=== PATIENT | female | born 1965 | race Hispanic/Latino ===

== ENCOUNTER 2020-09-17 15:23 | Emergency (ER) | payer OTHER ==
--- NOTE | 2020-09-17 18:26 | Emergency Department Report ---
ED General Adult HPI - General Chief complaint: Back Pain/Injury Stated complaint: BACK PAIN/CANT EAT PUI?: No Time Seen by Provider: 09/17/20 18:18 Source: patient Mode of arrival: Ambulatory Limitations: Physical Limitation - History of Present Illness Initial comments: The patient was evaluated in the emergency department for symptoms described in the history of present illness. He/she was evaluated in the context of the g lobal COVID-19 pandemic, which necessitated consideration that the patient might be at risk for infection with the virus that causes COVID-19. Institutional protocols and algorithms that pertain to the evaluation of patients at risk for COVID-19 are in a state of rapid change based on information released by regulatory bodies including the CDC and federal and state organizations. These policies and algorithms were followed during the patient's care in the emergency department. Please note that these policies, procedures and recommendations changed on a rapid basis. This is a 54-year-old female. She is not known to myself previously. She currently does not have a primary care doctor secondary to lack of having insurance, secondary to the Covid pandemic, but reports that she is starting to follow-up with a new doctor next month whom she has not seen. She reports a history of scoliosis, but otherwise denies chronic medical issues. She denies a history of IV drug use, and has a remote history of alcohol consumption for recreational reasons. Patient presents to the ER today with complaints of generalized weakness, nontraumatic paralumbar back pain, abdominal distention, constipation, lower extremity edema and swelling, decreased appetite, and "spitting up", every time she tries to eat, for the past 3 to 4 days. The back pain has been present for around 6 months. It is aching and throbbing, increases with palpation, decreases with rest in certain positions. She has not really taken much [id number], "may be a little bit of Tylenol here and there." She endorses lower extremity swelling which is new, for the past 4 to 5 days. She previously was 125 pounds, and reports that she is currently 85 pounds, and reports this is an unintentional weight loss. Abdominal distention is noted on review of systems. She is not vomited, but reports decreased appetite, and "spitting up", every time she tries to drink or eat. No Covid symptomatology. -: Gradual, days(s), month(s) Location: back, abdomen Quality: aching Consistency: intermittent Improves with: rest Worsens with: eating, movement - Related Data Previous Rx's Medication Instructions Recorded Last Taken Type Docusate Sodium [Colace] 100 mg PO BID PRN #60 capsule 09/17/20 Unknown Rx Ferrous Sulfate [Iron 325 MG] 325 mg PO TID #90 tablet 09/17/20 Unknown Rx oxyCODONE /ACETAMINOPHEN [Percocet 1 tab PO Q6HR PRN #15 tablet 09/17/20 Unknown Rx 5/325] Allergies Allergy/AdvReac Type Severity Reaction Status Date / Time No Known Allergies Allergy Unverified 09/17/20 17:16 ED Review of Systems ROS: Stated complaint: BACK PAIN/CANT EAT Other details as noted in HPI Constitutional: malaise, weakness, other (Denies loss of taste and smell). denies: fever Eyes: other (Denies yellow eyes) ENT: denies: epistaxis Respiratory: denies: cough Cardiovascular: denies: chest pain Gastrointestinal: nausea, constipation, other (Abdominal distention. Constipation) Genitourinary: denies: dysuria Musculoskeletal: back pain Neurological: weakness Psychiatric: anxiety Hematological/Lymphatic: denies: easy bleeding ED Past Medical Hx - Past Medical History Previous Medical History?: No - Surgical History Past Surgical History?: Yes Additional Surgical History: - Medications Home Medications: Home Medications Medication Instructions Recorded Confirmed Last Taken Type Docusate Sodium [Colace] 100 mg PO BID PRN #60 capsule 09/17/20 Unknown Rx Ferrous Sulfate [Iron 325 MG] 325 mg PO TID #90 tablet 09/17/20 Unknown Rx oxyCODONE /ACETAMINOPHEN [Percocet 1 tab PO Q6HR PRN #15 tablet 09/17/20 Unknown Rx 5/325] ED Physical Exam - General Limitations: No Limitations General appearance: alert, anxious - Head Head exam: Present: atraumatic, normocephalic - Eye Eye exam: Present: normal appearance, EOMI. Absent: scleral icterus, nystagmus - ENT ENT exam: Present: normal exam, normal orophraynx, mucous membranes moist, normal external ear exam - Neck Neck exam: Present: normal inspection, full ROM. Absent: tenderness, meningismus - Respiratory Respiratory exam: Present: normal lung sounds bilaterally. Absent: respiratory distress, wheezes, rales, rhonchi, stridor, decreased breath sounds - Cardiovascular Cardiovascular Exam: Present: normal rhythm, tachycardia, normal heart sounds. Absent: bradycardia, irregular rhythm, systolic murmur, diastolic murmur, rubs, gallop - GI/Abdominal GI/Abdominal exam: Present: soft, distended, organomegaly (Hepatomegaly), other (Fluid wave appreciated). Absent: tenderness, guarding, rebound, rigid - Extremities Exam Extremities exam: Present: normal inspection, full ROM, pedal edema (3+ edema in the lower extremities), other (2+ pulses noted in the bilateral upper and lower extremities. There is no palpable cord. negative Homans sign. Muscular compartments are soft. The pelvis is stable.). Absent: calf tenderness - Back Exam Back exam: Present: normal inspection, paraspinal tenderness. Absent: CVA tenderness (R), CVA tenderness (L) - Neurological Exam Neurological exam: Present: alert, other (No facial droop. Tongue midline. Extraocular movements intact bilaterally. Facial sensation intact to light touch in V1, V2, V3 distribution bilaterally. 5 and a 5 strength in 4 extremities. Sensation intact to light touch in 4 extremities.). Absent: motor sensory deficit - Psychiatric Psychiatric exam: Present: anxious - Skin Skin exam: Present: warm, dry, intact, normal color. Absent: rash ED Course Vital Signs 09/17/20 09/17/20 09/17/20 17:18 20:11 20:20 Temperature 98.2 F Pulse Rate 107 H 101 H 108 H Respiratory 18 22 22 Rate Blood Pressure 92/52 113/65 Blood Pressure 108/67 [Right] O2 Sat by Pulse 100 Oximetry 09/17/20 09/17/20 09/17/20 22:28 22:48 23:03 Temperature 98.3 F 98.1 F 98.2 F Pulse Rate 103 H 104 H 98 H Respiratory 18 22 13 Rate Blood Pressure 104/68 106/71 109/71 Blood Pressure [Right] O2 Sat by Pulse 100 100 100 Oximetry - Reevaluation(s) Reevaluation #1: 09/17/20 19:06 Differential diagnosis, including but not limited to: Cirrhosis, hepatic failure, renal failure, mechanical back pain, obstruction, Assessment and plan: 54-year-old female, with back pain for approximately 6 months, with acute rather rapid lower extremity swelling, unintentional weight gain, hepatomegaly, fluid wave, suspicious for hepatic disease. The patient is not encephalopathic and there is no asterixis. Place patient on cardiac nurse, start pain medication, nausea medication, obtain appropriate hepatic related studies, obtain CT scan of the abdomen pelvis, and reassess after initial data points. Patient does walk with a steady gait, she has no bladder or bowel retention or incontinence, no saddle anesthesia, denies IV drug use, there is no posterior back redness, pus or streaking noted, her examination at this time is not suggestive of AAA, or epidural compression syndrome, or epidural infection. This is suspicious for mechanical back pain. Reevaluation #2: 09/17/20 20:15 Patient found to have severe anemia. Patient gives consent for packed red blood cell transfusion. Rectal examination shows guaiac negative stool, no blood, chaperoned by nurse Gaines Iron studies added. 09/17/20 20:17 09/17/20 22:05 CT scan chest abdomen pelvis reviewed and appreciated. Suspicious for hepatocellular carcinoma, with iliac vein thrombosis, portal vein thrombosis, and adenopathy. I have gone back and discussed these findings with the patient. I have strongly recommended admission to the medical service for admission of anticoagulation, and continuation of packed red blood cell transfusion, in addition to urgent hematology/oncology consultation. At the moment, the patient is amenable to packed red blood cell transfusion, and pain control. However, she is adamant at this time that she does not want to be admitted to the hospital. She is currently awake, alert, oriented, sober and exhibits decision-making capacity. Risks of leaving, including , disability, paralysis, loss of quality of life are extensively discussed with the patient, who verbalized understanding, and is amenable to this plan of care. However, she states that she will think about being admitted, after receiving additional pain medication. Hydromorphone ordered. She is also amenable to packed red blood cell transfusions. 09/17/20 23:29 Patient reevaluated. I have again discussed my recommendation for admission, with RICKEY DIALLO present as a witness. Patient again declines admission. Patient continues to remain awake, alert, oriented, sober, and exhibits decision-making capacity. She is able to articulate risks of leaving, including , disability, paralysis, loss of quality of life. Given her underlying anemia, undifferentiated anemia, it is my opinion that discharged with systemic anticoagulation is on why it is an unsafe, and she will therefore not be discharged with anticoagulation. I will discharge her with pain medication=, copies of her laboratory studies, radiology studies, and referrals to local primary care, GI, and hematology oncology. Patient is encouraged to return to the emergency room right away if and when she changes her mind. Patient states she will return if and when she changes her mind. ED Medical Decision Making - Lab Data Result diagrams: 09/17/20 18:46 09/17/20 18:46 Vital Signs 09/17/20 17:18 Temperature 98.2 F Pulse Rate 107 H Respiratory 18 Rate Blood Pressure 108/67 [Right] O2 Sat by Pulse 100 Oximetry Lab Results 09/17/20 09/17/20 09/17/20 Range/Units 18:46 18:46 18:46 Sodium 136 L (137-145) mmol/L Potassium 3.5 L (3.6-5.0) mmol/L Chloride 99.8 (98-107) mmol/L Carbon Dioxide 20 L (22-30) mmol/L Anion Gap 20 mmol/L BUN 8 (7-17) mg/dL Creatinine 0.8 (0.6-1.2) mg/dL Estimated GFR > 60 ml/min BUN/Creatinine Ratio 10 % Glucose 85 (65-100) mg/dL Calcium 8.4 (8.4-10.2) mg/dL Magnesium 2.00 (1.7-2.3) mg/dL Total Bilirubin 0.30 (0.1-1.2) mg/dL Direct Bilirubin < 0.2 (0-0.2) mg/dL Indirect Bilirubin 0.1 mg/dL AST 19 (5-40) units/L ALT 8 (7-56) units/L Alkaline Phosphatase 199 H (35-129) units/L Ammonia 31.0 (25-60) umol/L Total Creatine Kinase 132 (30-135) units/L Total Protein 6.7 (6.3-8.2) g/dL Albumin 3.3 L (3.9-5) g/dL Albumin/Globulin Ratio 1.0 % Hepatitis A IgM Ab Non-reactive (NonReactive) Hep Bs Antigen Non-reactive (Negative) Hep B Core IgM Ab Non-reactive (NonReactive) Hepatitis C Antibody Non-reactive (NonReactive) Vital Signs 09/17/20 17:18 Temperature 98.2 F Pulse Rate 107 H Respiratory 18 Rate Blood Pressure 108/67 [Right] O2 Sat by Pulse 100 Oximetry Lab Results 09/17/20 09/17/20 09/17/20 Range/Units 18:46 18:46 18:46 WBC 8.4 (4.5-11.0) K/mm3 RBC 2.42 L (3.65-5.03) M/mm3 Hgb 4.7 L* (10.1-14.3) gm/dl Hct 16.3 L* (30.3-42.9) % MCV 67 L (79-97) fl MCH 20 L (28-32) pg MCHC 29 L (30-34) % RDW 18.5 H (13.2-15.2) % Plt Count 683 H (140-440) K/mm3 Lymph % (Auto) 14.4 (13.4-35.0) % Valley % (Auto) 10.8 H (0.0-7.3) % Eos % (Auto) 0.3 (0.0-4.3) % Baso % (Auto) 0.8 (0.0-1.8) % Lymph # (Auto) 1.2 (1.2-5.4) K/mm3 Valley # (Auto) 0.9 H (0.0-0.8) K/mm3 Eos # (Auto) 0.0 (0.0-0.4) K/mm3 Baso # (Auto) 0.1 (0.0-0.1) K/mm3 Seg Neutrophils % 73.7 H (40.0-70.0) % Seg Neutrophils # 6.2 (1.8-7.7) K/mm3 PT 16.6 H (12.2-14.9) Sec. INR 1.36 H (0.87-1.13) APTT 29.8 (24.2-36.6) Sec. Sodium 136 L (137-145) mmol/L Potassium 3.5 L (3.6-5.0) mmol/L Chloride 99.8 (98-107) mmol/L Carbon Dioxide 20 L (22-30) mmol/L Anion Gap 20 mmol/L BUN 8 (7-17) mg/dL Creatinine 0.8 (0.6-1.2) mg/dL Estimated GFR > 60 ml/min BUN/Creatinine Ratio 10 % Glucose 85 (65-100) mg/dL Calcium 8.4 (8.4-10.2) mg/dL Magnesium 2.00 (1.7-2.3) mg/dL Total Bilirubin 0.30 (0.1-1.2) mg/dL Direct Bilirubin < 0.2 (0-0.2) mg/dL Indirect Bilirubin 0.1 mg/dL AST 19 (5-40) units/L ALT 8 (7-56) units/L Alkaline Phosphatase 199 H (35-129) units/L Ammonia (25-60) umol/L Total Creatine Kinase 132 (30-135) units/L Total Protein 6.7 (6.3-8.2) g/dL Albumin 3.3 L (3.9-5) g/dL Albumin/Globulin Ratio 1.0 % Hepatitis A IgM Ab (NonReactive) Hep Bs Antigen (Negative) Hep B Core IgM Ab (NonReactive) Hepatitis C Antibody (NonReactive) 09/17/20 09/17/20 Range/Units 18:46 18:46 WBC (4.5-11.0) K/mm3 RBC (3.65-5.03) M/mm3 Hgb (10.1-14.3) gm/dl Hct (30.3-42.9) % MCV (79-97) fl MCH (28-32) pg MCHC (30-34) % RDW (13.2-15.2) % Plt Count (140-440) K/mm3 Lymph % (Auto) (13.4-35.0) % Valley % (Auto) (0.0-7.3) % Eos % (Auto) (0.0-4.3) % Baso % (Auto) (0.0-1.8) % Lymph # (Auto) (1.2-5.4) K/mm3 Valley # (Auto) (0.0-0.8) K/mm3 Eos # (Auto) (0.0-0.4) K/mm3 Baso # (Auto) (0.0-0.1) K/mm3 Seg Neutrophils % (40.0-70.0) % Seg Neutrophils # (1.8-7.7) K/mm3 PT (12.2-14.9) Sec. INR (0.87-1.13) APTT (24.2-36.6) Sec. Sodium (137-145) mmol/L Potassium (3.6-5.0) mmol/L Chloride (98-107) mmol/L Carbon Dioxide (22-30) mmol/L Anion Gap mmol/L BUN (7-17) mg/dL Creatinine (0.6-1.2) mg/dL Estimated GFR ml/min BUN/Creatinine Ratio % Glucose (65-100) mg/dL Calcium (8.4-10.2) mg/dL Magnesium (1.7-2.3) mg/dL Total Bilirubin (0.1-1.2) mg/dL Direct Bilirubin (0-0.2) mg/dL Indirect Bilirubin mg/dL AST (5-40) units/L ALT (7-56) units/L Alkaline Phosphatase (35-129) units/L Ammonia 31.0 (25-60) umol/L Total Creatine Kinase (30-135) units/L Total Protein (6.3-8.2) g/dL Albumin (3.9-5) g/dL Albumin/Globulin Ratio % Hepatitis A IgM Ab Non-reactive (NonReactive) Hep Bs Antigen Non-reactive (Negative) Hep B Core IgM Ab Non-reactive (NonReactive) Hepatitis C Antibody Non-reactive (NonReactive) - Radiology Data Radiology results: pending, report reviewed, image reviewed [facility] [address] [place] [address] Cat Scan Report Signed Patient: MARCOS ARGUETA MR#: [id number] 8 : 1965 Acct:[id number] Age/Sex: 54 / F ADM Date: 09/17/20 Loc: ED Attending Dr: Ordering Physician: NAYELY DAVEY MD Date of Service: 09/17/20 Procedure(s): CT abdomen pelvis wo con Accession Number(s): [id number] cc: NAYELY DAVEY MD CT ABDOMEN PELVIS WITHOUT CONTRAST INDICATION / CLINICAL INFORMATION: Abdominal pain, back pain, no bowel movement. TECHNIQUE: Axial CT images were obtained through the abdomen and pelvis without IV contrast. All CT scans at this location are performed using CT dose reduction for ALARA by means of automated exposure control. COMPARISON: None available. FINDINGS: The exam is of limited diagnostic quality secondary to patient's body habitus-lack of intra- abdominal fat and lack of intravenous contrast and oral contrast. LOWER CHEST: No significant abnormality. LIVER: Large partially calcified mass is present probably involving the left lower liver measuring 10 cm in diameter. Ascites is present GALLBLADDER: No significant abnormality. BILE DUCTS: No significant abnormality. PANCREAS: Not identified. SPLEEN: No significant abnormality. ADRENALS: Not identified RIGHT KIDNEY and URETER: Multiple punctate calcifications. LEFT KIDNEY and URETER: Multiple punctate calcifications. STOMACH and SMALL BOWEL: No significant abnormality. COLON: Diverticulosis present involving the colon APPENDIX: Not identified. PERITONEUM: No free fluid. No free air. No fluid collection. LYMPH NODES: No significant adenopathy. AORTA and ARTERIES: No significant abnormality. IVC and VEINS: No significant abnormality. URINARY BLADDER: No significant abnormality. REPRODUCTIVE ORGANS: No significant abnormality ADDITIONAL FINDINGS: None. SKELETAL SYSTEM: No significant abnormality. IMPRESSION: 1. Partially calcified large mass in the upper abdomen on the left probably originating from the left lower liver 2. Large volume ascites 3. Bilateral nephrolithiasis Comment: Limited exam as noted recommend repeat examination with oral and IV contrast for further evaluation Signer Name: Jeffery Coffey MD Signed: 09/17/2020 7:26 PM Workstation Name: [id number] Transcr ibed By: ENRIQUE Dictated By: Jeffery Coffey MD Electronically Authenticated By: Jeffery Coffey MD Signed Date/Time: 09/17/201925 DD/ 21 CT CHEST, ABDOMEN, AND PELVIS WITH IV CONTRAST INDICATION / CLINICAL INFORMATION: iv, oral contrast, liver mass and ascites. TECHNIQUE: Axial CT images were obtained through the chest, abdomen, and pelvis after IV contrast. All CT scans at this location are performed using CT dose reduction for ALARA by means of automated exposure control. COMPARISON: None available. FINDINGS: HEART: Moderate coronary artery calcifications are noted. THORACIC AORTA: Moderate atherosclerotic calcification without acute abnormali ty. MEDIASTINUM and NATALIE: Bulky posterior mediastinal lymphadenopathy adjacent to the aorta, the largest measuring 1.8 cm short axis. LUNGS: No acute air space or interstitial disease. Mild paraseptal emphysematous changes noted. 4 mm noncalcified soft tissue density nodule left lung base (series 2 image 64). Additional 5 mm noncalcified soft tissue density nodule left upper lobe series 2 image 54). PLEURA: No significant pleural effusion. No pneumothorax. ADDITIONAL CHEST FINDINGS: None. LIVER: Very large multilobulated mass centered at the left hepatic lobe measuring 13.5 x 12.0 x 11.3 cm. This lesion demonstrates central areas of necrosis with peripheral enhancement. Additional right hepatic lobe lesion measures 4.4 cm demonstrating similar findings. 2 additional smaller lesions are noted within the right hepatic lobe both closer to the hepatic dome measuring 1.8 and 1.7 cm respectively. There is a small hyperattenuating lesion right lobe measures 6 mm. Portal vein invasion is suspected with extension into the IVC. Background cirrhotic liver. GALLBLADDER: No significant abnormality. BILE DUCTS: No significant abnormality. PANCREAS: No significant abnormality. SPLEEN: No significant abnormality. ADRENALS: No significant abnormality. RIGHT KIDNEY / URETER: Tiny nonobstructive nephrolithiasis. No hydronephrosis. No focal lesion. LEFT KIDNEY / URETER: Tiny nonobstructive nephrolithiasis. No hydronephrosis. Multiple small simple renal cysts. No focal solid lesion. STOMACH and SMALL BOWEL: No significant abnormality. COLON: Colonic diverticulosis. No diverticulitis. APPENDIX: No significant abnormality. PERITONEUM: Large volume ascites. No free air. No fluid collection. LYMPH NODES: Bulky retroperitoneal lymphadenopathy, the largest conglomerate measuring 4.5 cm (series 3 image 62). AORTA and ARTERIES: Moderate atherosclerotic calcification without acute abnormality. IVC and VEINS: Hypoattenuating filling defect noted within the IVC extending from the portal vein inferiorly to the bilateral common iliac veins. Portal venous hypertension with collaterals. Additionally, there are filling defects in the bilateral common femoral veins. URINARY BLADDER: No significant abnormality. REPRODUCTIVE ORGANS: No significant abnormality. ADDITIONAL FINDINGS: None. SKELETAL SYSTEM: Multilevel degenerative changes are noted of the spine. No aggressive osseous lesions. I MPRESSION: 1. Very large multilobulated mass occupying most of the left hepatic lobe measuring 13.5 x 12.0 x 11.3 cm. Multiple additional lesions are noted wi thin the right hepatic lobe as described above. Additionally, there is invasion of the portal vein with associated thrombus extending from the portal vein with extensive extension into the bilateral common femoral veins. This finding is concerning for hepatocellular carcinoma with tumor in vein. Biopsy and PET CT are recommended if there is no known history of malignancy. 2. Bulky posterior mediastinal and retroperitoneal lymphadenopathy. 3. Portal venous hypertension with collaterals and hepatic cirrhosis. 4. Large volume ascites. 5. Multiple small noncalcified soft tissue density nodules as described above. These nodules need correlation with PET/CT for metabolic activity to exclude pulmonary metastases. 6. Please see above for details. Signer Name: Jose Stevens MD Signed: 09/17/2020 8:31 PM Workstation Name: [id number] Critical Care Time: Yes Critical care time in (mins) excluding proc time.: 74 Critical care attestation.: If time is entered above; I have spent that time in minutes in the direct care of this critically ill patient, excluding procedure time. ED Disposition Clinical Impression: Microcytic anemia, Liver mass, Ascites, Lower extremity edema, Lower back pain, Portal vein thrombosis, Iliac vein thrombosis, Nephrolithiasis, Adenopathy Disposition: LEFT AGAINST MED ADVICE Is pt being admited?: No Does the pt Need Aspirin: No Condition: Undetermined Additional Instructions: As we discussed, you have left the hospital/emergency room AGAINST MEDICAL ADVICE. By leaving, you risked , disability, paralysis, permanent loss of quality of life. The ER is open 24 hours a day, 7 days a week. It never close s. Please return to the emergency room right away if and when you change your mind. If you decide not to return to the emergency room, please follow-up with the listed physician referrals as soon as possible. As we discussed, patient most likely has hepatocellular carcinoma/liver cancer. This is the most likely reason for patient's anemia/low blood counts. In addition, the patient is found to have blood clot in her liver, and in her iliac veins. Blood clots may travel to the lungs, or other organs, and may cause , cardiac arrest. Patient will be given names, phone numbers, addresses of local primary care, gastroenterology, and hematology oncology. We recommend that the patient follow-up with an outpatient physician as soon as possible. Please return to the emergency room right away if and when patient changes her mind. Take the iron sulfate supplementation as directed. This medication may cause constipation, abdominal cramping, and black stool. Take the Percocet as di rected. Please note that Percocet contains Tylenol; maximum daily dose of Tylenol should not exceed 3 g per 24 hours. Each tablet of Percocet contains [address] Khan is a local hematology oncology/cancer doctor. Dr. Orantes is a local gastroenterology doctor. Dr. Robi Day is a local primary care doctor. Patient will be given copies of her laboratory studies and radiology studies, but, she should follow-up as soon as possible with an outpatient physician, and have whomever she follows up with contact medical records department to obtain copies of laboratory studies and radiology studies, to follow-up on her multiple abnormal findings. Do not take Motrin, ibuprofen, Naprosyn, Aleve. Referrals: MIKE DAY MD [Staff Physician] - 3-5 Days JAMEL ORANTES MD [Staff Physician] - 3-5 Days GRABIEL KHAN MD [Staff Physician] - 3-5 Days
[2020-09-17] MEDS ORDERED: ONDANSETRON 4 MG/2 ML INJ IV ONE ×2 (18:38→19:05)
[2020-09-17] MEDS ORDERED: fentaNYL 100 MCG/2 ML INJ IV ONE (18:38)
[2020-09-17 19:26] LABS: Alanine Aminotransferase 8 units/L (7-56); Albumin 3.3 g/dL (3.9-5); BUN/Creatinine Ratio 10; Blood Urea Nitrogen 8 mg/dL (7-17); Calcium 8.4 mg/dL (8.4-10.2); Hemolysis Index 0
[2020-09-17 19:28] LABS: Bilirubin,Direct < 0.2 mg/dL (0-0.2)
[2020-09-17 19:29] LABS: Hepatitis B Surface Antigen Non-Reactive (Negative); Hepatitis C Virus Antibody Non-Reactive (NonReactive)
--- NOTE | 2020-09-17 19:30 | Cat Scan Report ---
CT ABDOMEN PELVIS WITHOUT CONTRAST INDICATION / CLINICAL INFORMATION: Abdominal pain, back pain, no bowel movement. TECHNIQUE: Axial CT images were obtained through the abdomen and pelvis without IV contrast. All CT scans at [facility] are performed using CT dose reduction for ALARA by means of automated exposure control. COMPARISON: None available. FINDINGS: The exam is of limited diagnostic quality secondary to patient's body habitus-lack of intra-abdominal fat and lack of intravenous contrast and oral contrast. LOWER CHEST: No significant abnormality. LIVER: Large partially calcified mass is present probably involving the left lower liver measuring 10 cm in diameter. Ascites is present GALLBLADDER: No significant abnormality. BILE DUCTS: No significant abnormality. PANCREAS: Not identified. SPLEEN: No significant abnormality. ADRENALS: Not identified RIGHT KIDNEY and URETER: Multiple punctate calcifications. LEFT KIDNEY and URETER: Multiple punctate calcifications. STOMACH and SMALL BOWEL: No significant abnormality. COLON: Diverticulosis present involving the colon APPENDIX: Not identified. PERITONEUM: No free fluid. No free air. No fluid collection. LYMPH NODES: No significant adenopathy. AORTA and ARTERIES: No significant abnormality. IVC and VEINS: No significant abnormality. URINARY BLADDER: No significant abnormality. REPRODUCTIVE ORGANS: No significant abnormality ADDITIONAL FINDINGS: None. SKELETAL SYSTEM: No significant abnormality. IMPRESSION: 1. Partially calcified large mass in the upper abdomen on the left probably originating from the left lower liver 2. Large volume ascites 3. Bilateral nephrolithiasis Comment: Limited exam as noted recommend repeat examination with oral and IV contrast for further evaluation Signer Name: Jeffery Coffey MD Signed: 09/17/2020 7:26 PM Workstation Name: [id number]
[2020-09-17 19:36] LABS: Basophils # (Auto) 0.1 K/mm3 (0.0-0.1); Basophils % (Auto) 0.8 % (0.0-1.8); Eosinophils % (Auto) 0.3 % (0.0-4.3); Lymphocytes # (Auto) 1.2 K/mm3 (1.2-5.4); Lymphocytes % (Auto) 14.4 % (13.4-35.0); Mean Corpuscular HGB Conc 29 % (30-34); Monocytes # (Auto) 0.9 K/mm3 (0.0-0.8); Monocytes % (Auto) 10.8 % (0.0-7.3); Platelet Count 683 K/mm3 (140-440); Red Blood Count 2.42 M/mm3 (3.65-5.03); Red Cell Distribution Width 18.5 % (13.2-15.2)
[2020-09-17] MEDS ORDERED: MORPHINE 4 MG/1 ML INJ IV ONE ×2 (19:36→20:15)
[2020-09-17 19:48] LABS: INR 1.36 (0.87-1.13)
[2020-09-17 19:49] LABS: Partial Thromboplastin Time 29.8 Sec. (24.2-36.6)
[2020-09-17 20:04] LABS: Mean Corpuscular Volume 67 fl (79-97)
[2020-09-17 20:06] LABS: Hematocrit 16.3 % (30.3-42.9); Hemoglobin 4.7 gm/dl (10.1-14.3)
[2020-09-17] MEDS ORDERED: SODIUM CHLORIDE 0.9% 500 ML 500 ML IV ONE (20:15)
[2020-09-17 20:42] LABS: Iron 9 ug/dL (37-170); Total Iron Binding Capacity 363 mcg/dL (250-450)
[2020-09-17] MEDS ORDERED: D5W/0.45% NACL 1,000 ML IV SCH (21:00)
--- NOTE | 2020-09-17 21:36 | Cat Scan Report ---
CT CHEST, ABDOMEN, AND PELVIS WITH IV CONTRAST INDICATION / CLINICAL INFORMATION: iv, oral contrast, liver mass and ascites. TECHNIQUE: Axial CT images were obtained through the chest, abdomen, and pelvis after IV contrast. All CT scans at this location are performed using CT dose reduction for ALARA by means of automated exposure contr ol. COMPARISON: None available. FINDINGS: HEART: Moderate coronary artery calcifications are noted. THORACIC AORTA: Moderate atherosclerotic calcification without acute abnormality. MEDIASTINUM and NATALIE: Bulky posterior mediastinal lymphadenopathy adjacent to the aorta, the largest measuring 1.8 cm short axis. LUNGS: No acute air space or interstitial disease. Mild paraseptal emphysematous changes noted. 4 mm noncalcified soft tissue density nodule left lung base (series 2 image 64). Additional 5 mm noncalci fied soft tissue density nodule left upper lobe series 2 image 54). PLEURA: No significant pleural effusion. No pneumothorax. ADDITIONAL CHEST FINDINGS: None. LIVER: Very large multilobulated mass centered at the left hepatic lobe measuring 13.5 x 12.0 x 11.3 cm. This lesion demonstrates central areas of necrosis with peripheral enhancement. Additional right hepatic lobe lesion measures 4.4 cm demonstrating similar findings. 2 additional smaller lesions are noted within the right hepatic lobe both closer to the hepatic dome measuring 1.8 and 1.7 cm respecti vely. There is a small hyperattenuating lesion right lobe measures 6 mm. Portal vein invasion is susp ected with extension into the IVC. Background cirrhotic liver. GALLBLADDER: No significant abnormality. BILE DUCTS: No significant abnormality. PANCREAS: No significant abnormality. SPLEEN: No significant abnormality. ADRENALS: No significant abnormality. RIGHT KIDNEY / URETER: Tiny nonobstructive nephrolithiasis. No hydronephrosis. No focal lesion. LEFT KIDNEY / URETER: Tiny nonobstructive nephrolithiasis. No hydronephrosis. Multiple small simple r enal cysts. No focal solid lesion. STOMACH and SMALL BOWEL: No significant abnormality. COLON: Colonic diverticulosis. No diverticulitis. APPENDIX: No significant abnormality. PERITONEUM: Large volume ascites. No free air. No fluid collection. LYMPH NODES: Bulky retroperitoneal lymphadenopathy, the largest conglomerate measuring 4.5 cm (series 3 image 62). AORTA and ARTERIES: Moderate atherosclerotic calcification without acute abnormality. IVC and VEINS: Hypoattenuating filling defect noted within the IVC extending from the portal vein inf eriorly to the bilateral common iliac veins. Portal venous hypertension with collaterals. Additionall y, there are filling defects in the bilateral common femoral veins. URINARY BLADDER: No significant abnormality. REPRODUCTIVE ORGANS: No significant abnormality. ADDITIONAL FINDINGS: None. SKELETAL SYSTEM: Multilevel degenerative changes are noted of the spine. No aggressive osseous lesion s. IMPRESSION: 1. Very large multilobulated mass occupying most of the left hepatic lobe measuring 13.5 x 12.0 x 11. 3 cm. Multiple additional lesions are noted within the right hepatic lobe as described above. Additio daniel, there is invasion of the portal vein with associated thrombus extending from the portal vein w ith extensive extension into the bilateral common femoral veins. 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 Biopsy and PET CT are recommended if there is no known histor y of malignancy. 2. Bulky posterior mediastinal and retroperitoneal lymphadenopathy. 3. Portal venous hypertension with collaterals and hepatic cirrhosis. 4. Large volume ascites. 5. Multiple small noncalcified soft tissue density nodules as described above. These nodules need cor relation with PET/CT for metabolic activity to exclude pulmonary metastases. 6. Please see above for details. Signer Name: Jose Stevens MD Signed: 09/17/2020 9:31 PM Workstation Name: [id number]
[2020-09-17] MEDS ORDERED: HYDROmorphone 1 MG/1 ML INJ IV ONE (22:02)
[2020-09-17] MEDS ORDERED: SODIUM CHLORIDE 0.9% 500 ML 500 ML ONE (22:20)
[2020-09-18 00:38] VITALS: BP 94/62
== END 2020-09-18 01:38 | disposition left against medical advice (07) ==
LOC: ED 15:23
DX: D50.9 Iron deficiency anemia, unspecified (principal); R16.0 Hepatomegaly, not elsewhere classified; R60.9 Edema, unspecified; I81 Portal vein thrombosis; I82.429 Acute embolism and thrombosis of unspecified iliac vein; N20.0 Calculus of kidney; R59.9 Enlarged lymph nodes, unspecified; M54.5 Low back pain; Z98.890 Other specified postprocedural states; Z79.899 Other long term (current) drug therapy
CPT/HCPCS: 36415; 36430; 71260; 74176; 74177; 80048; 80074; 80076; 82140; 82550; 82728; 83550; 83735; 84466; 85025; 85045; 85610; 85730; 86850; 86900; 86901; 86920; 96361; 96374; 96375; 96376; 99291; J1170; J2270; J2405; J3010; J7040; P9016; Q9967; 80320; G0480

== ENCOUNTER 2020-09-25 13:32 | Emergency (ER) | payer OTHER ==
--- NOTE | 2020-09-25 14:37 | Emergency Department Report ---
Chief Complaint: Back Pain/Injury Stated Complaint: BACK PAINS Time Seen by Provider: 09/25/20 14:07 - [facility] History of Present Illness: This is a 54-year-old female who was seen here 8 days ago diagnosed with abdominal mass and lumbar pain returns to ED today complaining of pain stating that she is waiting to follow-up with the specialist in which she was referred. Patient states that she read a main appointment and has an appointment signed an appointment with the hematology oncologist. Patient states that she is waiting to hear back from Dr. Anderson he had a primary care physician. . Patient states that she has an appointment next month with her oncologist for biopsy. Patient states that she is out of the pain medication she was prescribed and wanting something for pain onto her appointment. Patient denies any new symptoms or new new injuries. Patient denies any fever, chills, nausea or vomiting, bowel irregularities or urinary symptoms. Patient states that she presents here simply because she ran out of her pain medication and was told to come to the ED by her primary care physician for pain control. - ROS Review of Systems: As noted in HPI - Exam Physical Exam: GENERAL: Alert and oriented x3, no apparent distress, Normal Gait, atraumatic. HEAD: Head is normocephalic and a-traumatic. ABDOMEN: No organomegaly was noted,Positive bowel sounds, soft, and distended. Nontender to palpation on all Quadrants, SKIN: Warm and dry, No lesions, No ulceration or induration present. MSE screening note: Focused history and physical exam performed. Due to findings the following was ordered: ED Medical Decision Making - Medical Decision Making I reviewed notes from last visit which was in depth stating that patient left AGAINST MEDICAL ADVICE not wanting admission to the hospitalist service. Patient states she still stands on that today and is simply here for pain medication. Patient states that she already has a follow-up appointment and will follow-up. She is in no acute or respiratory distress. She is sitting comfortably in the ED chair. ED Disposition for MSE Clinical Impression: Lower back pain, Liver mass Disposition: - TO HOME OR SELFCARE Is pt being admited?: No Does the pt Need Aspirin: No Condition: Stable Additional Instructions: Make sure to follow up with the primary care physician and specialist as discussed. Take all your medications as you've been prescribed. If you have any worsening symptoms or develop new symptoms please return to ED immediately. Prescriptions: HYDROcodone/APAP 5-325 [[place] 5/325] 1 each PO Q6HR PRN #10 tablet PRN Reason: Pain traMADoL [Ultram 50 MG tab] 50 mg PO Q6HR PRN #40 tablet PRN Reason: Pain Time of Disposition: 14:46
[2020-09-25 15:57] VITALS: BP 100/60
== END 2020-09-25 15:57 | disposition home or self-care (01) ==
LOC: ED 13:32
DX: R16.0 Hepatomegaly, not elsewhere classified (principal); M54.5 Low back pain
CPT/HCPCS: 99282

== ENCOUNTER 2020-10-04 05:06 | Emergency (ER) | payer OTHER ==
[2020-10-04 05:42] LABS: Hematocrit 22.2 % (30.3-42.9); Mean Corpuscular HGB Conc 32 % (30-34); Mean Corpuscular Volume 71 fl (79-97); Platelet Count 708 K/mm3 (140-440); Red Blood Count 3.13 M/mm3 (3.65-5.03)
[2020-10-04 05:46] LABS: Red Cell Distribution Width 27.2 % (13.2-15.2)
[2020-10-04 06:02] LABS: BUN/Creatinine Ratio 19; Blood Urea Nitrogen 15 mg/dL (7-17); Calcium 8.6 mg/dL (8.4-10.2); Hemolysis Index 0
[2020-10-04 06:20] LABS: Amorphous Crystals,Urine Few; Bacteria,Urine 1+ /HPF (Negative); Bilirubin,Urine NEG (Negative); Blood,Urine NEG (Negative); Calcium Oxalate Crystals,Urine 1+; Color,Urine Amber (Yellow); Hyaline Casts,Urine 7 /LPF; Mucus,Urine 2+ /HPF
[2020-10-04] MEDS ORDERED: SODIUM CHLORIDE 0.9% 500 ML 500 ML IV ONE (06:38)
[2020-10-04 06:48] LABS: Band Neutrophils # (Manual) 0.1 K/mm3; Total Cells Counted 100
[2020-10-04 06:49] LABS: Anisocytosis 1+; Hypochromasia 1+; Platelet Estimate Consistent w Auto
[2020-10-04 09:32] VITALS: BP 110/75
== END 2020-10-04 09:56 | disposition left against medical advice (07) ==
LOC: ED 05:06
DX: D64.9 Anemia, unspecified (principal); R18.8 Other ascites; K21.9 Gastro-esophageal reflux disease without esophagitis; Z98.890 Other specified postprocedural states; Z79.899 Other long term (current) drug therapy
CPT/HCPCS: 36415; 36430; 80048; 81001; 85007; 85025; 86850; 86900; 86901; 86920; 87086; 96360; 96361; 99283; J7040; P9016

== ENCOUNTER 2020-10-16 07:49 | Outpatient (CLI) | payer OTHER ==
[2020-10-16 09:56] LABS: INR 1.18 (0.87-1.13)
[2020-10-16] MEDS ORDERED: ALBUMIN HUMAN 25% (25 GM/100 ML) INJ IV PRN (10:37)
--- NOTE | 2020-10-16 10:37 | Short Stay Summary ---
Short Stay Documentation Date of service: 10/16/20 Narrative H&P: ascites - History Principal diagnosis: ascites Past Medical History: cancer, liver disease - Allergies and Medications Current Medications: Allergies No Known Allergies Allergy (Verified 10/04/20 08:16) Home Medications Medication Instructions Recorded Confirmed Last Taken Type Docusate Sodium [Colace] 100 mg PO BID PRN #60 capsule 09/17/20 Unknown Rx Ferrous Sulfate [Iron 325 MG] 325 mg PO TID #90 tablet 09/17/20 Unknown Rx oxyCODONE /ACETAMINOPHEN [Percocet 1 tab PO Q6HR PRN #15 tablet 09/17/20 Unknown Rx 5/325] HYDROcodone/APAP 5-325 [[place] 1 each PO Q6HR PRN #10 tablet 09/25/20 Unknown Rx 5/325] traMADoL [Ultram 50 MG tab] 50 mg PO Q6HR PRN #40 tablet 09/25/20 Unknown Rx - Physical exam General appearance: no acute distress - Brief post op/procedure progress note Date of procedure: 10/16/20 Pre-op diagnosis: ascites Post-op diagnosis: same Procedure: US paracentesis Anesthesia: local Findings: moderate to large ascites Surgeon: YOSVANY NIX Estimated blood loss: none Pathology: list (120cc) Specimen disposition: to lab Condition: stable - Hospital course Hospital course: uneventful - Disposition Condition at discharge: Good Disposition: DC-01 TO HOME OR SELFCARE Short Stay Discharge Plan Follow up with: ERROL GONZALES [Other] - 7 Days
--- NOTE | 2020-10-16 11:58 | Ultrasound Report ---
ULTRASOUND-GUIDED PARACENTESIS HISTORY: ASCITES. PROCEDURE: The risks (including but not limited to bleeding, infection, and bowel injury) and benefi ts were explained to the patient and informed consent was obtained. A time out procedure was perform ed. Ultrasound was used to evaluate the abdomen and locate the largest ascites fluid pocket. Once the sk in was marked, the procedure site was prepped and draped in the usual sterile fashion and lidocaine w as used for local anesthesia. A skin justine was made and a 5 [place] centesis catheter was placed. The patient was monitored closely throughout the procedure, and a total of 5200 mL of cloudy yellow flui d was aspirated. Samples were sent to the lab for further evaluation per the primary clinicians adelia hammond. The patient tolerated the procedure well with no complications. IMPRESSION: Successful ultrasound-guided paracentesis as described. Signer Name: Artemio Skinner Jr, MD Signed: 10/16/2020 11:54 AM Workstation Name: [id number]
[2020-10-16 12:32] VITALS: BP 94/64
== END 2020-10-16 12:37 | disposition home or self-care (01) ==
LOC: CATHLABREC 07:49
PROVIDERS: ATTEND Internal Medicine Hematology
DX: R18.8 Other ascites (principal); C22.0 Liver cell carcinoma; K21.9 Gastro-esophageal reflux disease without esophagitis; F32.9 Major depressive disorder, single episode, unspecified; F41.9 Anxiety disorder, unspecified; D64.9 Anemia, unspecified; Z79.899 Other long term (current) drug therapy; Z98.890 Other specified postprocedural states
CPT/HCPCS: 36415; 49083; 85610; 88112; 88305; P9047